=== PATIENT | female | born 1980 | race Caucasian/White ===

== ENCOUNTER 2016-07-25 17:04 | Inpatient (IN) | payer MEDICARE, OTHER ==
--- NOTE | ~2016-07-25 | DS ---
Discharge Summary [id number] [place]. [address] NAME: KATHY CASTILLO : 84 STATUS : DIS IN PAT#: [id number] AGE: 36 ADM/REG DATE : 07/25/16 MR#: [id number] REPORT SERV DATE: 07/31/16 DICTATED BY: DATE: REPORT STATUS : Draft TRANSCRIBED BY: MODL DATE: 07/30/16 ADMISSION DATE: 07/25/2016 DISCHARGE DATE: 07/30/2016 DISCHARGE DIAGNOSES: 1. Urinary tract infection. 2. Sepsis/systemic inflammatory response syndrome. 3. Obstructive uropathy. 4. Acute renal failure. 5. Type 2 diabetes, new diagnosis. 6. Chronic myelogenous leukemia. 7. Chronic anemia. 8. Urinary discomfort. CONSULTATIONS: 1. Dr. Trace Rojo, Nephrology. 2. Dr. Bethel Farnsworth, Urology. PERTINENT TESTS AND PROCEDURES: 1. Renal ultrasound 07/26/2016, impression, left-sided hydronephrotic changes not seen on CT scan from 10/2014. Question distal obstruction. Kidneys otherwise appear intact. Cortex normal echogenicity and thickness. Aorta, vena cava, and urinary bladder normal. 2. Cystoscopy, bilateral double-J stent placements, and Anderson catheter placement, 07/28/2016. 3. Anderson catheter removal, 07/30/2016 early a.m. POINT OF ENTRY: Transfer from [facility] Emergency Department. CHIEF COMPLAINT UPON ADMISSION: Acute renal failure. HOSPITAL COURSE: Please refer to history and physical dated 07/25/[address] Norberto Sousa for complete details pertaining to the patient's initial presentation upon admission and health history. Please also refer to consultations dated 07/27/2016 and 07/28/[address] Trace Rojo, Nephrology, and Dr. Bethel Farnsworth Urology. Briefly, the patient is a 36-year-old female, who presented to [facility] Emergency Department with chief complaint of back pain. Initial diagnostic evaluation included CT scan of abdomen and pelvis, which indicated bilateral upper renal tract dilatation secondary to small bilateral UVJ calculi. The patient also presented with acute renal failure. Creatinine reported to be 4.8. There was also concern for urinary tract infection. Urinalysis and culture were obtained at [facility] and the patient received first dose of Rocephin prior to transfer. 1. Urinary tract infection. The patient remained on Rocephin while awaiting urine culture Discharge Summary [address] [address] NAME: KATHY CASTILLO : 84 STATUS : DIS IN PAT#: [id number] AGE: 36 ADM/REG DATE : 07/25/16 MR#: [id number] REPORT SERV DATE: 07/31/16 DICTATED BY: DATE: REPORT STATUS : Draft TRANSCRIBED BY: MODL DATE: 07/30/16 from [facility] Emergency Department. Culture was finally obtained by fax two days ago and reported greater than 100,000 colonies of E. coli sensitive to Rocephin. The patient completed six days of Rocephin during hospital admission and will transition home on Ceftin 500 mg tablet p.o. twice daily x4 days to complete a total 10-day therapy. The patient was treated as complicated UTI secondary to sepsis/SIRS upon arrival. Unable to monitor the patient's white blood cell count secondary to count extremely elevated due to CML. Procalcitonin level was trended as an antibiotic guide. Procalcitonin was 14.28 upon admission and 1.20 on day of discharge. The patient has remained afebrile since 07/27/2016. 2. Sepsis/SIRS. Upon admission, the patient's procalcitonin was elevated at 14.2 and temperature maximum was 102.7 degrees Fahrenheit. This was urosepsis and the patient responded well to antibiotic therapy. Procalcitonin has trended downward and is 1.20 today. Blood cultures were obtained and preliminary results are negative growth. 3. Acute renal failure. This was multifactorial to include obstructive uropathy and hypovolemia. The patient's creatinine was 4.87 upon admission. Nephrology was consulted and followed along. The patient responded well to placement of bilateral double-J stents and since that time, creatinine has continued to trend downward daily and is 1.23 on the day of discharge. The patient will follow up outpatient with Nephrology in six to eight weeks. 4. Obstructive uropathy. Urology was consulted and the patient underwent cystoscopy with placement of bilateral double-J stents and Anderson catheter. The patient responded well to treatment and creatinine normalized. Anderson catheter was removed today and the patient has voided approximately 1250 mL of urine since that time. The patient did suffer from hyperuricemia during this admission, which was related to obstructive uropathy. The patient was also monitored closely for signs and symptoms of tumor lysis syndrome in the setting of CML. Uric acid was reported to be 14.9 upon admission, but normalized quickly after placement of bilateral double-J stents. Uric acid was reported to be 6.3 on 07/29/2016. 5. CML. The patient is under the care of Dr. Bowen at [facility]. The patient is noncompliant with treatment and prior to this admission, the patient reported not taking her Sprycel daily as prescribed by Dr. Bowen for over five months. Dr. Bowen was consulted during this admission and the patient has resumed medication per his instructions. The patient's white blood count is 115,000 on the day of discharge. The patient will follow up with Dr. Bowen in the near future. 6. Chronic anemia. The patient's hemoglobin and hematocrit have remained stable, status post transfusion of packed red blood cells on 07/27/2016. 7. Urinary discomfort. This is likely secondary to recent UTI and double-J stent placement. The patient was provided home prescription for Pyridium x2 days. 8. Type 2 diabetes. This is a new diagnosis during this admission. The patient's A1c was reported to be 6.7. Diabetic consult was requested and the patient received verbal education and handouts pertaining to diabetes, monitoring for hypo and hyperglycemia, sick day management. The patient was provided with glucometer and prescription for lancets and test strips. There was no indication for initiation of insulin at this time. The patient was counseled on lifestyle modifications. Blood glucose is stable between 130 and 158. The patient will start on metformin 500 mg p.o. daily with supper and follow up as a new patient at [facility] in four weeks for further evaluation and management. Discharge Summary [address] [address] NAME: KATHY CASTILLO : 84 STATUS : DIS IN PAT#: [id number] AGE: 36 ADM/REG DATE : 07/25/16 MR#: [id number] REPORT SERV DATE: 07/31/16 DICTATED BY: DATE: REPORT STATUS : Draft TRANSCRIBED BY: MODL DATE: 07/30/16 DISCHARGE CONDITION: At the time of discharge, the patient is hemodynamically stable. DISCHARGE DIET: 2000-calorie ADA diet. DISCHARGE MEDICATIONS: 1. Reglan 5 mg tablet p.o. every six hours. 2. Zofran 8 mg tablet p.o. at bedtime. 3. Zofran 8 mg tablet every eight hours as needed. 4. MiraLAX 17 g p.o. daily, hold for diarrhea. 5. Compazine 10 mg tablet p.o. at bedtime. 6. Zanaflex 4 mg tablet take 4 to 8 mg p.o. three times daily as needed. 7. Albuterol inhalation solution used as needed for shortness for shortness of breath. 8. Sprycel 100 mg tablet p.o. daily. 9. Ibuprofen. The patient was advised to abstain from all NSAIDs secondary to recent renal failure. 10.Ceftin 500 mg tablet p.o. twice daily x4 days, complete total of 10-day therapy for UTI. 11.Metformin 500 mg p.o. daily with supper. 12.Pyridium 100 mg tablet p.o. q.12 hours x2 days for urinary discomfort. DISCHARGE INSTRUCTIONS: 1. Follow up with Dr. Bowen within one week. 2. Follow up with Dr. Rojo, Nephrology, in six to eight weeks. 3. Follow up with Dr. Farnsworth, Urology, Tuesday08/06/2016. 4. Follow up at [facility] for further evaluation and management of new diagnosis, type 2 diabetes. The patient was instructed to return to the emergency department for any acute onset of fever 100.4 degrees Fahrenheit or higher lasting more than one hour, change in urinary pattern to include acute onset of dysuria or inability to urinate. Intractable nausea, vomiting, diarrhea, or any other concerns that are deviations from her baseline status at the time of this discharge. PRIMARY ONCOLOGIST: Dr. Bowen, [facility]. PRIMARY CARE PHYSICIAN: The patient has no primary care physician. She was referred to [facility] for appointment in August. KEAGAN/ONEYDA YOSHI Khalil#: [id number] / [id number] [address] [facility] [address] NAME: KATHY CASTILLO : 82 STATUS : DIS IN PAT#: [id number] AGE: 36 ADM/REG DATE : 07/25/16 MR#: [id number] REPORT SERV DATE: 07/31/16 DICTATED BY: DATE: REPORT STATUS : Draft TRANSCRIBED BY: MODL DATE: 07/30/16 CC: MD Jacek Chu II, M.D.
--- NOTE | ~2016-07-25 | HP ---
History And Physical [address] [facility] [place]. [address] NAME: KATHY CASTILLO : 84 STATUS : ADM IN PAT#: [id number] AGE: 36 ADM/REG DATE : 07/25/16 MR#: [id number] REPORT SERV DATE: 07/25/16 DICTATED BY: TERRENCE SOUSA DATE: 07/25/16 REPORT STATUS : Draft TRANSCRIBED BY: MODJenelle DATE: 07/25/16 DATE OF ADMISSION: 07/25/2016 CHIEF COMPLAINT: Transferred from [facility] ER. HISTORY OF PRESENT ILLNESS: This is a 36-year-old female with known history of CML, saw Dr. Bowen's last week. She states that for the past couple of weeks she has had issues with intermittent fevers, but consistent back pain on the right, worse than left. She states that she has had no dysuria and no issues with urination. However, she has had nausea and vomiting. The pain is has been largely consistent although getting progressively worse, currently 10/10. She denies anything making it better at home, although she has taken some ibuprofen. She presented to the ER earlier in the week as well. She says she has had fevers up to 104. Overnight, it was up to 100.8 in the ER; at the [facility], it was 99.8. She denies diarrhea. She has had about two normal bowel movements a day. Denies any bleeding. REVIEW OF SYSTEMS: A full review of systems was obtained, it is negative with the exception of above HPI. PAST MEDICAL HISTORY: The patient denies any medical history other than asthma and CML. FAMILY HISTORY: The patient says she had an uncle who of cancer, she is not sure of what kind. SOCIAL HISTORY: Denies smoking or drinking. Lives with her 17-year-old son and father who is ill. HOME MEDICATIONS: List is pending at this time. Per notes from the ER, she takes morphine, Ila 100 mg p.o. b.i.d., oxycodone 30 mg p.o. q.6 hours p.r.n., Ambien at bedtime p.r.n., Reglan 5 mg p.o. q.i.d., gabapentin 300 mg p.o. t.i.d., Zanaflex 8 mg p.o. t.i.d., phentermine 37.5 p.o. daily, and Zofran 8 mg p.o. b.i.d. As well as Sprycel for her CML which she has not received yet. PHYSICAL EXAMINATION: VITAL SIGNS: Temperature 99.8, blood pressure 110/60, pulse 93, respiratory rate 16, saturating 96% to 99% in the ER, they are 93% here. GENERAL: This is a female who is sitting in the bed, in no acute distress. She appears well developed and well nourished. HEENT: Extraocular muscles are intact. Sclerae anicteric. Mucous membranes are moist without any evidence of thrush. She has multiple facial piercings and tattoos. LUNGS: Clear to auscultation bilaterally without any wheezes, rales, or rhonchi. She has symmetric expansion. Normal effort. CARDIAC: Regular rate and rhythm with no appreciable murmur. ABDOMEN: Soft, nontender, nondistended. She does have right CVA tenderness. LOWER EXTREMITIES: Warm and well perfused with no edema. No rash. History And Physical [address] [address] NAME: KATHY CASTILLO : 84 STATUS : ADM IN [facility]#: [id number] AGE: 36 ADM/REG DATE : 07/25/16 MR#: [id number] REPORT SERV DATE: 07/25/16 DICTATED BY: TERRENCE SOUSA DATE: 07/25/16 REPORT STATUS : Draft TRANSCRIBED BY: ONEYDA DATE: 07/25/16 SKIN: Warm, dry, and intact with multiple tattoos and piercings. NEURO: Cranial nerves II through XII are grossly intact. Face is symmetric. Tongue is midline. LABORATORY DATA: From [facility] Emergency Room. Serum sodium 136, potassium 3.6, chloride 95, CO2 of 23, BUN 37, creatinine 4.8, uric acid 20.9, calcium 8.7. Total bilirubin 0.6, AST 24, ALT 20, alkaline phosphatase 128, total protein 8.1, albumin 4.5, globulin 3.6. White blood cell count 390, hemoglobin 9.2, platelet count of 670. Percent blast cells and periphery at 10. STUDIES: CT scan of the abdomen and pelvis without contrast, impression: 1. Bilateral upper renal tract dilatation which appears to be secondary to small bilateral UVJ calculi estimated to measure on the order of 0.3 to 0.4 cm. There may be additional small distal ureteric calculi as well. 2. Marked splenomegaly with mild improvement since prior. 3. Other findings as described. Chest x-ray: 1. Bronchial wall thickening. 2. Crowding due to shallow inspiration. 3. No firm evidence of pneumonia. ASSESSMENT AND PLAN: This is a 36-year-old female with history of compliance issues with known chronic myeloid leukemia, presenting with back pain, possible kidney stones in addition to fever. 1. Chronic myeloid leukemia with elevated uric acid of 20. The patient will be admitted to the hospital. Oncology will be consulted. This has been reviewed with Dr. Zeng. In the interim, we will give a dose of rasburicase and Hydrea mg p.o. x1. We will also check LDH and repeat blood work in the morning. Dr. Bowen's to see tomorrow. The patient should get her p.o. medication ordered from a mail order in the next couple days. We will also have pathologist her peripheral smear. 2. Acute renal failure. Likely this is multifactorial, could be related to her hydronephrosis versus uncontrolled chronic myeloid leukemia and possible urinary tract infection. The patient will be given IV fluids with IV bicarb in addition to ordering a urine ultrasound. We will continue IV fluids. She got approximately 3 L prior to transfer here. We will check urine lytes in addition and have a low threshold to consult Nephrology if needed. Repeat blood work in the morning, to monitor for any improvement. We will renally dose adjust medications as appropriate and avoid nephrotoxins. 3. Fevers with reportedly abnormal urinalysis at outside facility. We will continue ceftriaxone and follow up culture results from [facility]. 4. History of asthma. No acute issues here. We will have p.r.n. medications available as needed. Deep vein thrombosis prophylaxis will be with heparin. 5. Back pain. We will provide pain control and again follow up on renal ultrasound in the morning to determine if Urology consultation is needed for ongoing issues. 6. Chronic pain. Continue home medications with hold parameters for any sedations. 7. Hyperglycemia. We will check hemoglobin A1c. Serum glucose was 180 on BMP done in the History And Physical [address] [address] NAME: KATHY CASTILLO : 84 STATUS : ADM IN PAT#: [id number] AGE: 36 ADM/REG DATE : 07/25/16 MR#: [id number] REPORT SERV DATE: 07/25/16 DICTATED BY: TERRENCE SOUSA DATE: 07/25/16 REPORT STATUS : Draft TRANSCRIBED BY: ONEYDA DATE: 07/25/16 ER. CODE STATUS: Full. DNK/ONEYDA Terrence Sousa MD / [id number] CC: Terrence Sousa MD
--- NOTE | ~2016-07-25 | OP ---
Record Of Operation [facility] [address] [facility] [place] [place] [address] NAME: KATHY CASTILLO : 84 STATUS : ADM IN PAT#: [id number] AGE: 36 ADM/REG DATE : 07/25/16 MR#: [id number] REPORT SERV DATE: 07/28/16 DICTATED BY: Lisa DESAI DATE: 07/28/16 REPORT STATUS : Draft TRANSCRIBED BY: MODL DATE: 07/28/16 DATE OF PROCEDURE: 07/28/2016 PREOPERATIVE DIAGNOSIS: Bilateral ureteral obstruction due to distal ureteral stones with acute renal failure. POSTOPERATIVE DIAGNOSIS: Bilateral ureteral obstruction due to distal ureteral stones with acute renal failure. PROCEDURE: Cystoscopy, left retrograde pyelography, stone manipulation, left double-J stent placement, right retrograde pyelogram, stone manipulation, right double-J stent placement, examination under anesthesia, Anderson catheter placement. SURGEON: Lisa Desai M.D. ANESTHESIA: General. COMPLICATIONS: None. DRAINS: 1. Left 7-[place] x 22 cm Contour double-J stent. 2. Right 7-[place] x 24 cm Contour double-J stent. 3. 20-[place] two-way Anderson catheter. BRIEF HISTORY: Ms. Aram Quintana is a 36-year-old white female with CML, admitted with possible UTI and acute renal failure and bilateral hydronephrosis with this ureteral obstruction due to stone. I presume that these are uric acid stones, as her uric acid level was high. I saw her yesterday and plan to proceed with stent placement today and delayed ureteroscopy. There were no unanswered questions. All risks and benefits were discussed as per consultation note. DESCRIPTION OF PROCEDURE: Under excellent general anesthesia, the patient was prepped and draped in standard lithotomy position. Bimanual exam revealed no pelvic masses with a mobile cervix and normal external genitalia. Cystoscopy was performed with a 30-degree lens, revealed a normal appearing bladder. In general, there were small calcifications, crystalline in appearance in her bladder. Both intramural tunnels and ureteral orifices appeared inflamed and enlarged. I inserted an 8-[place] cone-tipped catheter in the left orifice. I was able to obtain retrograde pyelogram which showed distal filling defect due to stone and ureteral pyelocaliectasis. I inserted an angled glidewire through a 5-[place] open-ended catheter up to the level of the kidney. There was tortuosity proximally which required some manipulation of the ureteral catheter and wire, but I was able to straighten the ureter and then placed a 7-[place] x 22 cm Contour double-J stent. It looked first like it might be a little short, but it seem to find a reasonable position and then we will consider maybe a 24 cm stent in the future. Urine from that side was crystal clear and I saw no need to obtain a culture. Similarly, I obtained retrograde on the right side. Again the orifice and intramural tunnel area were inflamed and edematous. I was able to obtain a Record Of Operation [address] [place]. [address] NAME: KATHY CASTILLO : 84 STATUS : ADM IN PAT#: [id number] AGE: 36 ADM/REG DATE : 07/25/16 MR#: [id number] REPORT SERV DATE: 07/28/16 DICTATED BY: Lisa DESAI DATE: 07/28/16 REPORT STATUS : Draft TRANSCRIBED BY: ONEYDA DATE: 07/28/16 pyelogram which look much like the left side showing filling defect and obstruction. I was able to manipulate a Glidewire through a 5-[place] open-ended catheter and manipulated up to the level of the renal pelvis. Again the urine appeared clear and uninfected, so I did not send the specimen. I left the dilated collecting system opacified and placed a 7-[place] x 24 cm Contour double-J stent which coiled nicely in the renal pelvis and bladder. I decided for urine output monitoring to place a 20-[place] Anderson catheter and the case was terminated. I was unable initially to contact the family, but my plan would be once her renal failure resolves to perform bilateral ureteroscopy and remove any large volume stone and then in conjunction with renal, plan for urinary alkalinization with or without allopurinol assuming that these are uric acid stones. ANABELL/ONEYDA Lisa Desai M.D. / [id number] CC: MD Jacek Chu II, M.D. Trace Rojo M.D. Jesus Alberto Bowen III, M.D.
--- NOTE | ~2016-07-25 | CN ---
Consultation Report [facility] [address] [place]. [address] NAME: KATHY CASTILLO : 84 STATUS : ADM IN PAT#: [id number] AGE: 36 ADM/REG DATE : 07/25/16 MR#: [id number] REPORT SERV DATE: 07/27/16 DICTATED BY: TRACE ROJO DATE: 07/27/16 REPORT STATUS : Draft TRANSCRIBED BY: ONEYDA DATE: 07/27/16 NEPHROLOGY CONSULTATION DATE OF CONSULTATION: CHIEF COMPLAINT: Acute kidney insufficiency. HISTORY OF PRESENT ILLNESS: The patient is a 36-year-old noncompliant white female with significant past medical history of CML, presented to [facility] with complaints of bilateral flank pain. As part of initial workup, she had an abdominal pelvic CT scan that revealed bilateral upper renal tract dilatation secondary to suspected small bilateral UVJ calculi, estimated to be in the order of 0.3 mm to 0.4 mm. The patient was transferred to [facility] for further evaluation and management by Dr. Bowen. The patient's creatinine is 4.87 on arrival. She has received IV fluids and her creatinine today is 3.94. Renal ultrasound shows left-sided hydronephrosis. CT scan as noted above at [facility]. The patient was placed on Rocephin for possible urinary tract infection in the setting of her fevers. She was noted to have some nausea, vomiting, and poor oral intake. Her white blood cell count on arrival was 238. She received a dose of hydroxyurea. She was also noted to have a uric acid of 20. She received rasburicase. The patient is not on any chronic daily nephrotoxins. PAST MEDICAL HISTORY: CML, followed by Dr. Bowen . SOCIAL HISTORY: Son and father alive. FAMILY MEDICAL HISTORY: No known kidney disease. ALLERGIES: INCLUDE TRAMADOL, PENICILLINS, CODEINE, ACETAMINOPHEN, CEPHALEXIN. CURRENT MEDICATIONS: Rocephin, Reglan, NovoLog, Ambien, Zanaflex, IV Dilaudid, hydroxyurea. REVIEW OF SYSTEMS: Complete review of systems negative, otherwise stated in HPI. PHYSICAL EXAMINATION: VITAL SIGNS: Temperature is 99.5, pulse is 79, blood pressure is 110/60. GENERAL: She is a thin, white female, in no apparent distress. NEUROLOGIC: She is alert and oriented x3. Gross motor intact. SKIN: No petechiae or purpura. Multiple tattoos. HEENT: Normocephalic. NECK: No JVP. Trachea midline. No lymphadenopathy. CARDIOVASCULAR: Regular rate and rhythm. No gallops, rubs, or murmurs. RESPIRATORY: Clear to auscultation bilaterally. ABDOMEN: Soft, nontender. No bowel sounds. Consultation Report [place] [address] [place]. [address] NAME: KATHY CASTILLO : 84 STATUS : ADM IN PAT#: [id number] AGE: 36 ADM/REG DATE : 07/25/16 MR#: [id number] REPORT SERV DATE: 07/27/16 DICTATED BY: TRACE ROJO DATE: 07/27/16 REPORT STATUS : Draft TRANSCRIBED BY: MODL DATE: 07/27/16 EXTREMITIES: No peripheral edema. VASCULAR: +2 radial and carotid pulses bilaterally. PSYCH: Appropriate mood and affect. LABORATORY STUDIES: Sodium is 135, potassium is 3.9, chloride is 100, CO2 is 22, BUN is 48, creatinine is 3.94. Uric acid is 14.9, calcium is 7.2, magnesium is 2.0, phosphorus is 5.1. LDH completed on 07/26/2016, was 710. White blood cell count is 105.9, hemoglobin is 6.1, platelets of 311. ASSESSMENT: 1. Fever secondary to possible urinary tract infection. 2. Nephrolithiasis with bilateral hydronephrosis, hydroureter by CT scan at [facility]. 3. Chronic myelogenous leukemia with leukocytosis in the setting of medical noncompliance. 4. Hyperuricemia. 5. Anemia. 6. Resolved hypotension. 7. Multifactorial nonoliguric acute kidney insufficiency, most likely secondary to obstructive uropathy, but other components include hypovolemia and hyperviscosity syndrome. 8. Hyperphosphatemia. PLAN: 1. Urology consult for obstructive uropathy. 2. Monitor for tumor lysis syndrome. 3. IV fluids, bicarb. 4. A.m. labs. 5. No acute indication for hemodialysis. LOUISE/EZEQUIELL Trace Rojo M.D. / [id number] CC: MD Jacek Chu II, M.D.
--- NOTE | ~2016-07-25 | CN ---
Consultation Report [facility] [address] [place]. [address] NAME: KATHY CASTILLO : 84 STATUS : ADM IN PAT#: [id number] AGE: 36 ADM/REG DATE : 07/25/16 MR#: [id number] REPORT SERV DATE: 07/27/16 DICTATED BY: TRACE ROJO DATE: 07/27/16 REPORT STATUS : Draft TRANSCRIBED BY: MODL DATE: 07/27/16 NEPHROLOGY CONSULTATION DATE OF CONSULTATION: 07/27/2016 CHIEF COMPLAINT: Acute kidney insufficiency. HISTORY OF PRESENT ILLNESS: The patient is a 36-year-old, medically noncompliant white female with significant past medical history of CML, presented to [facility] for bilateral flank pain. She was noted to be febrile at that time, and concerns for urinary tract infection, started on Rocephin. She had a CT scan of her abdomen and pelvis, without contrast, and showed bilateral upper renal tract dilatation. There appeared to be this dilatation secondary to small bilateral UVJ calculi, which measure on the order of 0.3 [address] scan[address] scan revealed marked splenomegaly. The patient was transferred to [facility] for further evaluation and management under the guidance of the Hospitalist Service along with her medical oncologist - Dr. Bowen. She was noted to be febrile on transfer. Temperature was noted to be 102.7 at max. She is on Rocephin. Her T- max in last 24 hours is 100.8. Urine and blood cultures are currently negative. LOUISE/ONEYDA Trace Rojo M.D. / [id number] CC: MD Jacek Chu II, M.D.
--- NOTE | ~2016-07-25 | CN ---
Consultation Report [facility] [address] [place]. [address] NAME: KATHY CASTILLO : 84 STATUS : ADM IN PAT#: [id number] AGE: 36 ADM/REG DATE : 07/25/16 MR#: [id number] REPORT SERV DATE: 07/28/16 DICTATED BY: Lisa DESAI DATE: 07/28/16 REPORT STATUS : Draft TRANSCRIBED BY: ONEYDA DATE: 07/28/16 CONSULTATION DATE OF CONSULTATION: 07/27/2016 CHIEF COMPLAINT: Bilateral hydronephrosis with acute renal failure. HISTORY OF PRESENT ILLNESS: Ms. Aram Quintana is a 36-year-old white female, admitted with CML, recent fever, and back pain right greater than left. Apparently, she was seen elsewhere and had a urinary tract infection. I do not have any culture results. She has had some subjective fever, apparently also documented up to 104, but she has been afebrile recently. She was admitted 07/25/2016. It was noted now that her creatinine is 4.8, her uric acid is 20.9, a CT scan shows bilateral hydronephrosis with bilateral distal ureteral calculi. Her urine analysis is inflammatory. Culture is pending. She denies any history of stones. PAST MEDICAL HISTORY: 1. CML. 2. Asthma. PAST SURGICAL HISTORY: Tubal with surgery in 2004. HOME MEDICATIONS: Albuterol, Sprycel, Advil, Zofran, oxycodone, Zanaflex, Compazine, Reglan, Zolpidem, gabapentin 300 mg t.i.d. and Zanaflex 8 mg t.i.d. ALLERGIES: TRAMADOL, CEPHALEXIN, PENICILLIN, CODEINE, AND ACETAMINOPHEN ALL CAUSE WHELPS. PLASTIC TAPE ALSO CAUSED WHELPS. FAMILY HISTORY: Negative for urologic disease. SOCIAL HISTORY: The patient denies use of alcohol or tobacco. REVIEW OF SYSTEMS: A full 12-point review of systems was negative except as noted above. PHYSICAL EXAMINATION: GENERAL: Reasonably comfortable appearing 36-year-old white female, afebrile with normal vital signs. She is currently eating dinner. T-max of 100, alert and oriented x3. VITAL SIGNS: Afebrile with normal vital signs. HEENT: Normocephalic and atraumatic. Multiple piercing's and facial tattoos. CHEST: No respiratory distress. HEART: Regular rate and rhythm. ABDOMEN: Nontender and nondistended. No CVA tenderness. Except some mild tenderness on the right. No suprapubic distention. Consultation Report [place] [id number] [facility] [place]. [address] NAME: KATHY CASTILLO : 84 STATUS : ADM IN PAT#: [id number] AGE: 36 ADM/REG DATE : 07/25/16 MR#: [id number] REPORT SERV DATE: 07/28/16 DICTATED BY: Lisa DESAI DATE: 07/28/16 REPORT STATUS : Draft TRANSCRIBED BY: MODL DATE: 07/28/16 EXTREMITIES: Peripheral exam reveals no significant edema. PERTINENT LABORATORY: Creatinine on 07/27/2016 of 3.94, down from 4.87, white count is of no help, due to her CML with 105,000. Urinalysis is inflammatory. Culture is pending. IMPRESSION: 1. Chronic myelogenous leukemia. 2. Acute renal failure. 3. Bilateral hydronephrosis, with likely distal ureteral calculi, probably uric acid. 4. Possible urinary tract infection. Culture pending. PLAN: This patient needs cysto, bilateral retrograde, bilateral stent placement, followed by delayed ureteroscopy. She is presently awake, alert, and hemodynamically stable, eating dinner, I do not see any need for emergent intervention. We will try to add her on in the morning which is about 12 hours from now. We will change our plan if necessary. I discussed this with her and planned to place stents bilaterally as a first step, and we will proceed as indicated at that time. The risks of bleeding, infection, anesthesia, injury to adjacent organs etc, inability to place stents were all discussed. There were no unanswered questions. ANABELL/ONEYDA Lisa Desai M.D. / [id number] CC: MD Jacek Chu II, M.D.
[~2016-07-25 17:04] MED LIST: ASA5GR PO; COMP10B PO; LORT7 PO; OXYCOD PO; PONATINIB PO; PR25 PO; REG PO; ROXICODONE30 MG PO; ZOFRAN8 PO; [UNRECOGNIZED DRUG - OTHER] PO; [UNRECOGNIZED DRUG - REMARK]
[2016-07-25] MEDS ORDERED: COMP10B PO (18:11)
[2016-07-25] MEDS ORDERED: SPRYCEL100 MG PO (18:13)
[2016-07-25] MEDS ORDERED: OXYCOD PO (18:14)
[2016-07-25] MEDS ORDERED: REG5 PO (18:15)
[2016-07-25] MEDS ORDERED: AMB10 PO (18:15)
[2016-07-25] MEDS ORDERED: ZOFRANODT8 PO (18:16)
[2016-07-25] MEDS ORDERED: ZANAFLEX 4 MG TA4 MG PO (18:16)
[2016-07-25] MEDS ORDERED: ADVIL PO (18:16)
[2016-07-25] MEDS ORDERED: ZOFRAN8 PO (18:16)
[2016-07-25] MEDS ORDERED: ALBUTEROL5 PO (18:17)
[2016-07-26 05:05] LABS: MEAN CORPUSCULAR HEMOGLOB 28.4 pg (26.0-34.0); MEAN CORPUSCULAR VOLUME 82.8 fL (80-100); MEAN PLATELET VOLUME 10.3 fL (9.2-13.0); PLATELET COUNT 499 10/3/uL (150-400); RBC DISTRIBUTION WIDTH 18.1 % (12.0-16.0)
[2016-07-26 05:09] LABS: HEMATOCRIT 22.2 % (36.0-48.0); HEMOGLOBIN 7.6 g/dL (12.0-16.0); MEAN CORPUS HGB CONC 34.2 g/dL (32.0-36.0); RED CELL COUNT 2.68 10/6/uL (4.0-5.6); WHITE BLOOD CELLS 237.7 10/3/uL (4.5-10.5)
[2016-07-26 05:29] LABS: CHLORIDE, SERUM 101 MMOL/L (96-112); GLUCOSE, SERUM 162 MG/DL (60-99); PHOSPHORUS, SERUM 6.8 MG/DL (2.5-4.5); SODIUM, SERUM 136 MMOL/L (135-148)
[2016-07-26 05:34] LABS: BUN (BLOOD UREA NITROGEN) 43 MG/DL (6-23); CALCIUM, SERUM 7.3 MG/DL (8.5-10.4); CO2 (CARBON DIOXIDE) 19 MMOL/L (24-34); CREATININE 4.87 MG/DL (0.55-1.02); GFR AFRICAN AMERICAN 13 ML/MIN (>=60); GFR NON AFRICAN AMERICAN 11 ML/MIN (>=60); POTASSIUM, SERUM 4.4 MMOL/L (3.5-5.3)
[2016-07-26 05:50] LABS: SGOT(AST) 18 U/L (5-40); SGPT(ALT) 8 U/L (5-65); TOTAL BILIRUBIN 0.2 MG/DL (0-1.2); TOTAL PROTEIN 6.8 G/DL (6.0-8.5)
[2016-07-26 05:54] LABS: A/G RATIO 0.7 (0.7-1.9); ALBUMIN 2.8 G/DL (3.5-5.0); ALKALINE PHOSPHATASE 97 U/L (45-117)
[2016-07-26 06:35] LABS: PROCALCITONIN 14.28 ng/mL (<0.5)
[2016-07-26 07:32] LABS: BAND NEUTROPHILS 42 %; BASOPHILS 2 %; BASOPHILS ABSOLUTE (CALC) 4.75 10/3/uL (0.0-0.16); EOSINOPHILS 8 %; EOSINOPHILS ABSOLUTE (CALC) 19.02 10/3/uL (0.0-0.53); IMMATURE GRANS ABSOLUTE (CALC) 40.41 10/3/uL (0.0-0.11); LYMPHOCYTES 1 %; LYMPHOCYTES ABSOLUTE (CALC) 2.38 10/3/uL (0.67-4.30); METAMYELOCYTES 8 %; MYELOCYTES 9 %; NEUTROPHILS ABSOLUTE (CALC) 171.14 10/3/uL (2.02-8.40); SEGMENTED NEUTROPHIL (0) 30 %; TOTAL NUCLEATED CELLS 100
[2016-07-26 07:33] LABS: PLATELET ESTIMATE SLT INC (ADEQUATE); POLYCHROMASIA 2+ (5-10/OIF) (0-1/OIF); TOXIC GRANULATION 1+
[2016-07-26 13:07] LABS: ASCORBIC ACID (UR NOT ORDER) NEG (NEG); BILIRUBIN, URINE NEGATIVE (NEG); KETONE, URINE NEGATIVE (NEG); LEUKOCYTE ESTERASE(NOT OR SMALL (NEG); WBC (NOT ORDERED) (RFLEX) 13 (0-5)
[2016-07-26 13:59] LABS: CREATININE, URINE 49.5 MG/DL
[2016-07-27 06:41] LABS: BUN (BLOOD UREA NITROGEN) 48 MG/DL (6-23); CALCIUM, SERUM 7.2 MG/DL (8.5-10.4); CHLORIDE, SERUM 100 MMOL/L (96-112); CO2 (CARBON DIOXIDE) 22 MMOL/L (24-34); CREATININE 3.94 MG/DL (0.55-1.02); GFR AFRICAN AMERICAN 16 ML/MIN (>=60); GFR NON AFRICAN AMERICAN 14 ML/MIN (>=60); GLUCOSE, SERUM 132 MG/DL (60-99); PHOSPHORUS, SERUM 5.1 MG/DL (2.5-4.5); POTASSIUM, SERUM 3.9 MMOL/L (3.5-5.3); SODIUM, SERUM 135 MMOL/L (135-148)
[2016-07-27 07:21] LABS: MEAN CORPUS HGB CONC 34.5 g/dL (32.0-36.0); MEAN CORPUSCULAR HEMOGLOB 27.5 pg (26.0-34.0); MEAN PLATELET VOLUME 10.2 fL (9.2-13.0); RBC DISTRIBUTION WIDTH 17.7 % (12.0-16.0); RED CELL COUNT 2.22 10/6/uL (4.0-5.6)
[2016-07-27 07:24] LABS: HEMOGLOBIN 6.1 g/dL (12.0-16.0); WHITE BLOOD CELLS 105.9 10/3/uL (4.5-10.5)
[2016-07-27 07:25] LABS: HEMATOCRIT 17.7 % (36.0-48.0); MEAN CORPUSCULAR VOLUME 79.7 fL (80-100)
[2016-07-27 07:26] LABS: PLATELET COUNT 311 10/3/uL (150-400)
[2016-07-27 07:29] LABS: MANUAL DIFF YES %
[2016-07-27 07:49] LABS: BAND NEUTROPHILS 31 %; EOSINOPHILS 2 %; EOSINOPHILS ABSOLUTE (CALC) 2.12 10/3/uL (0.0-0.53); IMMATURE GRANS ABSOLUTE (CALC) 8.47 10/3/uL (0.0-0.11); LYMPHOCYTES 2 %; LYMPHOCYTES ABSOLUTE (CALC) 2.12 10/3/uL (0.67-4.30); METAMYELOCYTES 5 %; MONOCYTES 1 %; MONOCYTES ABSOLUTE (CALC) 1.06 10/3/uL (0.21-1.20); MYELOCYTES 3 %; NEUTROPHILS ABSOLUTE (CALC) 92.13 10/3/uL (2.02-8.40); SEGMENTED NEUTROPHIL (0) 56 %; TOTAL NUCLEATED CELLS 100
[2016-07-27 07:50] LABS: ANISOCYTOSIS 1+ (5-10/OIF) (0-5/OIF); PLATELET ESTIMATE ADQ (ADEQUATE)
[2016-07-27 20:00] LABS: ASCORBIC ACID (UR NOT ORDER) NEG (NEG); BILIRUBIN, URINE NEGATIVE (NEG); KETONE, URINE NEGATIVE (NEG); LEUKOCYTE ESTERASE(NOT OR SMALL (NEG); WBC (NOT ORDERED) (RFLEX) 16 (0-5)
[2016-07-28 06:10] LABS: ALBUMIN 2.7 G/DL (3.5-5.0); BUN (BLOOD UREA NITROGEN) 35 MG/DL (6-23); CALCIUM, SERUM 7.5 MG/DL (8.5-10.4); CHLORIDE, SERUM 99 MMOL/L (96-112); CO2 (CARBON DIOXIDE) 25 MMOL/L (24-34); GFR AFRICAN AMERICAN 30 ML/MIN (>=60); GFR NON AFRICAN AMERICAN 25 ML/MIN (>=60); GLUCOSE, SERUM 107 MG/DL (60-99); SODIUM, SERUM 138 MMOL/L (135-148)
[2016-07-28 06:15] LABS: HEMOGLOBIN 8.4 g/dL (12.0-16.0); MANUAL DIFF YES %; MEAN CORPUS HGB CONC 33.6 g/dL (32.0-36.0); MEAN CORPUSCULAR HEMOGLOB 27.2 pg (26.0-34.0); MEAN CORPUSCULAR VOLUME 80.9 fL (80-100); MEAN PLATELET VOLUME 10.7 fL (9.2-13.0); NUCLEATED RED BLOOD CELLS 0.1 /100WBC (0-0); PLATELET COUNT 319 10/3/uL (150-400); RBC DISTRIBUTION WIDTH 17.2 % (12.0-16.0); RED CELL COUNT 3.09 10/6/uL (4.0-5.6); WHITE BLOOD CELLS 108.4 10/3/uL (4.5-10.5)
[2016-07-28 06:29] LABS: BAND NEUTROPHILS 29 %; EOSINOPHILS 1 %; EOSINOPHILS ABSOLUTE (CALC) 1.08 10/3/uL (0.0-0.53); IMMATURE GRANS ABSOLUTE (CALC) 5.42 10/3/uL (0.0-0.11); LYMPHOCYTES 4 %; LYMPHOCYTES ABSOLUTE (CALC) 4.34 10/3/uL (0.67-4.30); METAMYELOCYTES 1 %; MONOCYTES 1 %; MONOCYTES ABSOLUTE (CALC) 1.08 10/3/uL (0.21-1.20); MYELOCYTES 4 %; NEUTROPHILS ABSOLUTE (CALC) 96.48 10/3/uL (2.02-8.40); PLATELET ESTIMATE ADQ (ADEQUATE); RBC MORPHOLOGY ABN (NORMAL); SEGMENTED NEUTROPHIL (0) 60 %; TOTAL NUCLEATED CELLS 100
[2016-07-29 06:29] LABS: HEMATOCRIT 26.9 % (36.0-48.0); HEMOGLOBIN 8.7 g/dL (12.0-16.0); MEAN CORPUS HGB CONC 32.3 g/dL (32.0-36.0); MEAN CORPUSCULAR HEMOGLOB 26.9 pg (26.0-34.0); MEAN PLATELET VOLUME 10.9 fL (9.2-13.0); PLATELET COUNT 364 10/3/uL (150-400); RBC DISTRIBUTION WIDTH 17.5 % (12.0-16.0); RED CELL COUNT 3.24 10/6/uL (4.0-5.6)
[2016-07-29 06:42] LABS: WHITE BLOOD CELLS 113.5 10/3/uL (4.5-10.5)
[2016-07-29 06:51] LABS: ALBUMIN 2.3 G/DL (3.5-5.0); BUN (BLOOD UREA NITROGEN) 21 MG/DL (6-23); CALCIUM, SERUM 7.7 MG/DL (8.5-10.4); CHLORIDE, SERUM 100 MMOL/L (96-112); CO2 (CARBON DIOXIDE) 29 MMOL/L (24-34); CREATININE 1.43 MG/DL (0.55-1.02); GFR AFRICAN AMERICAN 55 ML/MIN (>=60); GFR NON AFRICAN AMERICAN 48 ML/MIN (>=60); GLUCOSE, SERUM 120 MG/DL (60-99); POTASSIUM, SERUM 3.8 MMOL/L (3.5-5.3); SODIUM, SERUM 137 MMOL/L (135-148)
[2016-07-29 07:18] LABS: ANISOCYTOSIS 1+ (5-10/OIF) (0-5/OIF); BAND NEUTROPHILS 7 %; BASOPHILS 3 %; BASOPHILS ABSOLUTE (CALC) 5.68 10/3/uL (0.0-0.16); EOSINOPHILS 2 %; EOSINOPHILS ABSOLUTE (CALC) 2.27 10/3/uL (0.0-0.53); GIANT PLATELET OCC; IMMATURE GRANS ABSOLUTE (CALC) 4.54 10/3/uL (0.0-0.11); LYMPHOCYTES 10 %; LYMPHOCYTES ABSOLUTE (CALC) 11.35 10/3/uL (0.67-4.30); METAMYELOCYTES 4 %; MONOCYTES 2 %; MONOCYTES ABSOLUTE (CALC) 2.27 10/3/uL (0.21-1.20); PLATELET ESTIMATE ADQ (ADEQUATE); SEGMENTED NEUTROPHIL (0) 72 %; TOTAL NUCLEATED CELLS 100
[2016-07-30 05:07] LABS: ALBUMIN 2.4 G/DL (3.5-5.0); CALCIUM, SERUM 7.4 MG/DL (8.5-10.4); CHLORIDE, SERUM 100 MMOL/L (96-112); CO2 (CARBON DIOXIDE) 29 MMOL/L (24-34); CREATININE 1.23 MG/DL (0.55-1.02); GFR AFRICAN AMERICAN 66 ML/MIN (>=60); GFR NON AFRICAN AMERICAN 57 ML/MIN (>=60); GLUCOSE, SERUM 130 MG/DL (60-99); PHOSPHORUS, SERUM 2.9 MG/DL (2.5-4.5); POTASSIUM, SERUM 4.2 MMOL/L (3.5-5.3); SODIUM, SERUM 140 MMOL/L (135-148)
[2016-07-30 05:10] LABS: BUN (BLOOD UREA NITROGEN) 16 MG/DL (6-23)
[2016-07-30 05:13] LABS: HEMOGLOBIN 9.7 g/dL (12.0-16.0); MEAN CORPUSCULAR HEMOGLOB 27.2 pg (26.0-34.0); MEAN CORPUSCULAR VOLUME 85.1 fL (80-100); MEAN PLATELET VOLUME 11.1 fL (9.2-13.0); NUCLEATED RED BLOOD CELLS 0.2 /100WBC (0-0); RBC DISTRIBUTION WIDTH 17.6 % (12.0-16.0); RED CELL COUNT 3.56 10/6/uL (4.0-5.6)
[2016-07-30 05:15] LABS: HEMATOCRIT 30.3 % (36.0-48.0); WHITE BLOOD CELLS 115.8 10/3/uL (4.5-10.5)
[2016-07-30 05:16] LABS: MANUAL DIFF YES %; PLATELET COUNT 555 10/3/uL (150-400)
[2016-07-30 07:32] LABS: BAND NEUTROPHILS 29 %; EOSINOPHILS 3 %; EOSINOPHILS ABSOLUTE (CALC) 3.47 10/3/uL (0.0-0.53); GIANT PLATELET FEW; IMMATURE GRANS ABSOLUTE (CALC) 9.26 10/3/uL (0.0-0.11); LYMPHOCYTES 2 %; LYMPHOCYTES ABSOLUTE (CALC) 2.32 10/3/uL (0.67-4.30); METAMYELOCYTES 4 %; MONOCYTES 4 %; MONOCYTES ABSOLUTE (CALC) 4.63 10/3/uL (0.21-1.20); MYELOCYTES 4 %; NEUTROPHILS ABSOLUTE (CALC) 96.11 10/3/uL (2.02-8.40); PLATELET ESTIMATE INC (ADEQUATE); SEGMENTED NEUTROPHIL (0) 54 %; TOTAL NUCLEATED CELLS 100
[2016-07-30] MEDS ORDERED: PYR100B PO (12:25)
[2016-07-30] MEDS ORDERED: CEFT5 PO (12:25)
[2016-07-30] MEDS ORDERED: GLUCPH PO (12:26)
[2016-07-30] MEDS ORDERED: MIRALAX POWDER1 PKT PO (12:32)
[2016-10-13] MEDS ORDERED: NEUR400 PO (03:30)
[2016-10-13] MEDS ORDERED: ZANAFLEX 4 MG TA4 MG PO (03:31)
[2016-10-13] MEDS ORDERED: GLUCPH PO (03:31)
[2016-10-13] MEDS ORDERED: SEROQUEL400 MG PO (03:32)
[2016-10-13] MEDS ORDERED: REG5 PO (03:32)
[2016-10-13] MEDS ORDERED: BUSPAR10 PO (03:33)
[2016-10-13] MEDS ORDERED: ZOL100 PO (03:34)
[2016-10-13] MEDS ORDERED: AMB10 PO (03:34)
[2016-10-13] MEDS ORDERED: COMP10B PO (03:35)
[2016-10-13] MEDS ORDERED: SPRYCEL100 MG PO (03:35)
[2016-10-13] MEDS ORDERED: ZOFRANODT8 PO/SL (03:36)
[2016-10-13] MEDS ORDERED: VENTOLIN HFA INH (03:37)
[2016-10-13] MEDS ORDERED: TYLENOL PM PO (03:38)
[2016-10-13] MEDS ORDERED: CORT-DOME 1% CR15 GM TOP (03:39)
[2017-01-01] MEDS ORDERED: COMP10B PO (17:33)
[2017-01-01] MEDS ORDERED: PRAZOSIN HCL1 MG PO (17:33)
[2017-01-01] MEDS ORDERED: REM15 PO (17:34)
[2017-01-01] MEDS ORDERED: TRIAMCINOLONE C80 GM TOP (17:35)
[2017-01-01] MEDS ORDERED: MELATONIN5 M1 PO (17:35)
[2017-01-01] MEDS ORDERED: ZYPREXA10 MG PO (17:37)
[2017-01-01] MEDS ORDERED: TYLENOL PM PO (17:38)
[2017-01-01] MEDS ORDERED: SPRYCEL100 MG PO (17:39)
[2017-01-01] MEDS ORDERED: ZOFRAN8 PO (17:40)
[2017-01-01] MEDS ORDERED: AT25 PO (17:40)
[2017-01-01] MEDS ORDERED: GLUCPH PO (17:41)
[2017-01-01] MEDS ORDERED: ZANTAC300 MG PO (17:41)
[2017-01-01] MEDS ORDERED: NEUR400 PO (17:41)
[2017-01-01] MEDS ORDERED: BUSPAR15 M1 PO (17:42)
[2017-01-01] MEDS ORDERED: REG5 PO (17:43)
[2017-01-01] MEDS ORDERED: ZANAFLEX 4 MG TA4 MG PO (17:43)
[2017-01-01] MEDS ORDERED: SEROQUEL400 MG PO (17:44)
[2017-01-01] MEDS ORDERED: DOX10 PO (17:44)
[2017-01-01] MEDS ORDERED: SIMPLY SLEEP25 MG PO (17:45)
[2017-01-01] MEDS ORDERED: AMB10 PO (17:46)
[2017-01-01] MEDS ORDERED: ZOL100 PO (17:46)
[2017-01-01] MEDS ORDERED: PHENTERMINE37.5 M1 PO (17:47)
[2017-01-01] MEDS ORDERED: MSCONTIN PO (17:48)
[2017-01-01] MEDS ORDERED: PROAIR HFA INH (17:52)
[2017-01-01] MEDS ORDERED: ADVAIR250 INH (17:53)
[2017-01-01] MEDS ORDERED: FLONASE NAS (17:55)
[2017-01-01] MEDS ORDERED: KEPPRA500 PO (18:04)
[2017-01-01] MEDS ORDERED: GENPRIL200 MG PO (18:04)
[2017-01-01] MEDS ORDERED: ACTOS30 PO (18:06)
[2017-01-01] MEDS ORDERED: OXYCODONE (18:12)
== END 2016-07-30 15:30 | disposition home or self-care (01) | DRG 854 ==
LOC: 4EA 17:04
PROVIDERS: Internal Medicine; Internal Medicine Nephrology; Nurse Practitioner Family
PROC: 30233N1 Transfusion of Nonautologous Red Blood Cells into Peripheral Vein, Percutaneous Approach (ICD-10-PCS; 2016-07-25)
PROC: 0T7B8DZ Dilation of Bladder with Intraluminal Device, Via Natural or Artificial Opening Endoscopic (ICD-10-PCS; 2016-07-28)
PROC: 0T7B8DZ Dilation of Bladder with Intraluminal Device, Via Natural or Artificial Opening Endoscopic (ICD-10-PCS; principal; 2016-07-28 06:45)
DX: A41.9 Sepsis, unspecified organism (principal); N17.9 Acute kidney failure, unspecified; E87.2 Acidosis; C92.10 Chronic myeloid leukemia, BCR/ABL-positive, not having achieved remission; N13.30 Unspecified hydronephrosis; E83.39 Other disorders of phosphorus metabolism; N39.0 Urinary tract infection, site not specified; E11.9 Type 2 diabetes mellitus without complications; E79.0 Hyperuricemia without signs of inflammatory arthritis and tophaceous disease; D64.9 Anemia, unspecified; B96.20 Unspecified Escherichia coli [E. coli] as the cause of diseases classified elsewhere
CPT/HCPCS: 36415; 74420; 76775; 80048; 80053; 80069; 81001; 82570; 82962; 83036; 83605; 83615; 83735; 84100; 84145; 84300; 84550; 84703; 85007; 85025; 85027; 86850; 86900; 86901; 86920; 87040; 87086; 88184; 88185; A9270-GY; C1758; C1769; C1874; C2617; J1170; J2250; J2405; J2710; J2783; J3010; P9040; Q9967

== ENCOUNTER 2016-08-06 12:07 | Day surgery (SDC) | payer MEDICARE, OTHER ==
--- NOTE | ~2016-08-06 | OP ---
Record Of Operation [facility] [address] [place] [address] NAME: KATHY BENITEZ : 84 STATUS : [facility]#: [id number] AGE: 36 ADM/REG DATE : 08/06/16 MR#: [id number] REPORT SERV DATE: 08/06/16 DICTATED BY: Lisa DESAI DATE: 08/06/16 REPORT STATUS : Draft TRANSCRIBED BY: MODL DATE: 08/06/16 DATE OF PROCEDURE: 08/06/2016 PREOPERATIVE DIAGNOSIS: Bilateral indwelling double-J stents with bilateral distal stones. POSTOPERATIVE DIAGNOSIS: No evidence of residual stone. PROCEDURES: Cystoscopy, removal of right double-J stent, right retrograde pyelography, ureteroscopy, removal of left double-J stent, left retrograde pyelography, left ureteroscopy, placement of left double-J stent. SURGEON: Lisa Desai M.D. ANESTHESIA: General endotracheal. COMPLICATIONS: None. DRAINS: 7-Cameroonian x 22 cm Contour left double-J stent (on a string). BRIEF HISTORY: Ms Aram Benitez is a 36-year-old white female with CML and evidence of recent infection and was found to have renal failure, bilateral hydronephrosis, and distal ureteral stones on 07/27/2016. I placed stent for the morning and her creatinine normalized to about 1.4. She has had typical stent irritation. She is here for ureteroscopy and stone removal. She had a high uric acid and is presumed these are uric acid stones. We discussed the risks of bleeding, infection, anesthesia, need to place stents postoperatively. She desperately wanted to avoid further surgery if possible and I told her I would leave stents on a string if reasonable. DESCRIPTION OF PROCEDURE: Under excellent general anesthesia, the patient was prepped and draped in the standard lithotomy position. Cystoscopy was performed with a 30-degree lens, revealed stents emanating from each orifice. I removed the stent from her right ureteral orifice without difficulty. I inserted an angled glidewire through a 5-Cameroonian open-ended catheter and then a rigid ureteroscope was inserted alongside the wire. I saw two tiny stone fragments right at her orifice. I did not see any residual stone and I looked all the way up to her UPJ. I removed the scope and wire and her collecting system remain dilated, but most of her ureter drained easily. I then removed the stent from her left ureter with a flexible grasper. I inserted an angled wire through a 5-Cameroonian open-ended catheter and performed rigid ureteroscopy on the left side. Again, no stone was seen even with inspection all the way up to the proximal ureter. She has bilateral tortuosity of proximal ureters. I left that collecting system dilutely opacified and retrofitted the wire in the cystoscope. I then placed a 7-Cameroonian x 22 cm Contour double-J stent, which coiled nicely in the renal pelvis and bladder and left the string attached. I plan to discharge Ms Aram Benitez with the following instructions. Record Of Operation [place] [id number] [facility] [place] [address] NAME: KATHY BENITEZ : 84 STATUS : [facility] PAT#: [id number] AGE: 36 ADM/REG DATE : 08/06/16 MR#: [id number] REPORT SERV DATE: 08/06/16 DICTATED BY: Lisa DESAI DATE: 08/06/16 REPORT STATUS : Draft TRANSCRIBED BY: ONEYDA DATE: 08/06/16 DISCHARGE INSTRUCTIONS: 1. Home today. 2. Remove stent Tuesday morning, that is in three days. 3. Call for any problems. 4. Percocet 5/325 one to two p.o. q.4 hours p.r.n. pain with #20. 5. I would like to see her in a couple weeks. I do not think we will have stone analysis, although we will not have any stone analysis. We will discuss the rationale of alkalinize in her urine. Check a postvoid residual and make sure that her creatinine has remained stable. At this point in time, I have not been able to find her family. ANABELL/ONEYDA Lisa Desai M.D. / [id number] CC: Florinda Thomas III, M.D.
[~2016-08-06 12:07] MED LIST changes: +ADVIL PO; +ALBUTEROL5 PO; +AMB10 PO; +CEFT5 PO; +GLUCPH PO; +MIRALAX POWDER1 PKT PO; +PYR100B PO; +REG5 PO; +SPRYCEL100 MG PO; +ZANAFLEX 4 MG TA4 MG PO; +ZOFRANODT8 PO
[2016-10-13] MEDS ORDERED: NEUR400 PO (03:30)
[2016-10-13] MEDS ORDERED: ZANAFLEX 4 MG TA4 MG PO (03:31)
[2016-10-13] MEDS ORDERED: GLUCPH PO (03:31)
[2016-10-13] MEDS ORDERED: SEROQUEL400 MG PO (03:32)
[2016-10-13] MEDS ORDERED: REG5 PO (03:32)
[2016-10-13] MEDS ORDERED: BUSPAR10 PO (03:33)
[2016-10-13] MEDS ORDERED: AMB10 PO (03:34)
[2016-10-13] MEDS ORDERED: ZOL100 PO (03:34)
[2016-10-13] MEDS ORDERED: COMP10B PO (03:35)
[2016-10-13] MEDS ORDERED: SPRYCEL100 MG PO (03:35)
[2016-10-13] MEDS ORDERED: ZOFRANODT8 PO/SL (03:36)
[2016-10-13] MEDS ORDERED: VENTOLIN HFA INH (03:37)
[2016-10-13] MEDS ORDERED: TYLENOL PM PO (03:38)
[2016-10-13] MEDS ORDERED: CORT-DOME 1% CR15 GM TOP (03:39)
[2017-01-01] MEDS ORDERED: PRAZOSIN HCL1 MG PO (17:33)
[2017-01-01] MEDS ORDERED: COMP10B PO (17:33)
[2017-01-01] MEDS ORDERED: REM15 PO (17:34)
[2017-01-01] MEDS ORDERED: MELATONIN5 M1 PO (17:35)
[2017-01-01] MEDS ORDERED: TRIAMCINOLONE C80 GM TOP (17:35)
[2017-01-01] MEDS ORDERED: ZYPREXA10 MG PO (17:37)
[2017-01-01] MEDS ORDERED: TYLENOL PM PO (17:38)
[2017-01-01] MEDS ORDERED: SPRYCEL100 MG PO (17:39)
[2017-01-01] MEDS ORDERED: ZOFRAN8 PO (17:40)
[2017-01-01] MEDS ORDERED: AT25 PO (17:40)
[2017-01-01] MEDS ORDERED: NEUR400 PO (17:41)
[2017-01-01] MEDS ORDERED: GLUCPH PO (17:41)
[2017-01-01] MEDS ORDERED: ZANTAC300 MG PO (17:41)
[2017-01-01] MEDS ORDERED: BUSPAR15 M1 PO (17:42)
[2017-01-01] MEDS ORDERED: REG5 PO (17:43)
[2017-01-01] MEDS ORDERED: ZANAFLEX 4 MG TA4 MG PO (17:43)
[2017-01-01] MEDS ORDERED: DOX10 PO (17:44)
[2017-01-01] MEDS ORDERED: SEROQUEL400 MG PO (17:44)
[2017-01-01] MEDS ORDERED: SIMPLY SLEEP25 MG PO (17:45)
[2017-01-01] MEDS ORDERED: ZOL100 PO (17:46)
[2017-01-01] MEDS ORDERED: AMB10 PO (17:46)
[2017-01-01] MEDS ORDERED: PHENTERMINE37.5 M1 PO (17:47)
[2017-01-01] MEDS ORDERED: MSCONTIN PO (17:48)
[2017-01-01] MEDS ORDERED: PROAIR HFA INH (17:52)
[2017-01-01] MEDS ORDERED: ADVAIR250 INH (17:53)
[2017-01-01] MEDS ORDERED: FLONASE NAS (17:55)
[2017-01-01] MEDS ORDERED: GENPRIL200 MG PO (18:04)
[2017-01-01] MEDS ORDERED: KEPPRA500 PO (18:04)
[2017-01-01] MEDS ORDERED: ACTOS30 PO (18:06)
[2017-01-01] MEDS ORDERED: OXYCODONE (18:12)
== END 2016-08-06 18:58 | disposition home or self-care (01) ==
LOC: SDC 12:07
PROC: 0T778DZ Dilation of Left Ureter with Intraluminal Device, Via Natural or Artificial Opening Endoscopic (ICD-10-PCS; 2016-08-06)
PROC: 0T768DZ Dilation of Right Ureter with Intraluminal Device, Via Natural or Artificial Opening Endoscopic (ICD-10-PCS; 2016-08-06)
PROC: BT1DZZZ Fluoroscopy of Right Kidney, Ureter and Bladder (ICD-10-PCS; 2016-08-06)
PROC: 0TP98DZ Removal of Intraluminal Device from Ureter, Via Natural or Artificial Opening Endoscopic (ICD-10-PCS; principal; 2016-08-06 13:30)
DX: T83.85XA Stenosis due to genitourinary prosthetic devices, implants and grafts, initial encounter (principal); J45.909 Unspecified asthma, uncomplicated; N18.9 Chronic kidney disease, unspecified; E11.9 Type 2 diabetes mellitus without complications; G43.909 Migraine, unspecified, not intractable, without status migrainosus; M10.9 Gout, unspecified; F12.90 Cannabis use, unspecified, uncomplicated; C92.10 Chronic myeloid leukemia, BCR/ABL-positive, not having achieved remission; Z92.21 Personal history of antineoplastic chemotherapy; Z98.890 Other specified postprocedural states; Z92.3 Personal history of irradiation; Z88.0 Allergy status to penicillin; Z88.5 Allergy status to narcotic agent; Z88.6 Allergy status to analgesic agent; Z91.048 Other nonmedicinal substance allergy status
CPT/HCPCS: 74420; 82962; 84703; C1758; C1769; C2617; J1170; J2250; J2405; J2550; J2710; J3010; Q9967

== ENCOUNTER 2016-08-20 11:57 | Emergency (ER) | payer MEDICARE, OTHER ==
[2016-08-20 10:38] LABS: BUN (BLOOD UREA NITROGEN) 19 MG/DL (6-23); CHLORIDE, SERUM 105 MMOL/L (96-112); CO2 (CARBON DIOXIDE) 28 MMOL/L (24-34); CREATININE 1.15 MG/DL (0.55-1.02); GFR AFRICAN AMERICAN 72 ML/MIN (>=60); GFR NON AFRICAN AMERICAN 62 ML/MIN (>=60); POTASSIUM, SERUM 4.3 MMOL/L (3.5-5.3); SODIUM, SERUM 138 MMOL/L (135-148)
[2016-08-20 10:40] LABS: GLUCOSE, SERUM 101 MG/DL (60-99)
[2016-08-20 10:41] LABS: ASCORBIC ACID (UR NOT ORDER) NEG (NEG); BILIRUBIN, URINE NEGATIVE (NEG); ER URINALYSIS TAT 0 Hrs 18 Mins; KETONE, URINE NEGATIVE (NEG); LEUKOCYTE ESTERASE(NOT OR NEG (NEG); NITRITE (URINE) NEG (NEG); WBC (NOT ORDERED) (RFLEX) 2 (0-5)
[2016-08-20 10:46] LABS: HEMOGLOBIN 11.4 g/dL (12.0-16.0); MEAN CORPUS HGB CONC 31.4 g/dL (32.0-36.0); MEAN CORPUSCULAR HEMOGLOB 26.8 pg (26.0-34.0); MEAN CORPUSCULAR VOLUME 85.4 fL (80-100); MEAN PLATELET VOLUME 9.7 fL (9.2-13.0); RBC DISTRIBUTION WIDTH 19.6 % (12.0-16.0); RED CELL COUNT 4.25 10/6/uL (4.0-5.6)
[2016-08-20 10:47] LABS: ER CBC TAT 0 Hrs 25 Mins; HEMATOCRIT 36.3 % (36.0-48.0); PLATELET COUNT 883 10/3/uL (150-400); WHITE BLOOD CELLS 32.8 10/3/uL (4.5-10.5)
[2016-08-20 10:49] LABS: MANUAL DIFF YES %
[2016-08-20 11:03] LABS: BAND NEUTROPHILS 11 %; BASOPHILS 10 %; BASOPHILS ABSOLUTE (CALC) 3.28 10/3/uL (0.0-0.16); EOSINOPHILS 8 %; EOSINOPHILS ABSOLUTE (CALC) 2.62 10/3/uL (0.0-0.53); ER DIFF TAT 0 Hrs 41 Mins; IMMATURE GRANS ABSOLUTE (CALC) 1.97 10/3/uL (0.0-0.11); LYMPHOCYTES 9 %; LYMPHOCYTES ABSOLUTE (CALC) 2.95 10/3/uL (0.67-4.30); METAMYELOCYTES 3 %; MONOCYTES 1 %; MYELOCYTES 3 %; NEUTROPHILS ABSOLUTE (CALC) 21.98 10/3/uL (2.02-8.40); SEGMENTED NEUTROPHIL (0) 55 %; TOTAL NUCLEATED CELLS 100
[2016-08-20 11:04] LABS: ANISOCYTOSIS 1+ (5-10/OIF) (0-5/OIF)
[2016-10-13] MEDS ORDERED: NEUR400 PO (03:30)
[2016-10-13] MEDS ORDERED: ZANAFLEX 4 MG TA4 MG PO (03:31)
[2016-10-13] MEDS ORDERED: GLUCPH PO (03:31)
[2016-10-13] MEDS ORDERED: SEROQUEL400 MG PO (03:32)
[2016-10-13] MEDS ORDERED: REG5 PO (03:32)
[2016-10-13] MEDS ORDERED: BUSPAR10 PO (03:33)
[2016-10-13] MEDS ORDERED: ZOL100 PO (03:34)
[2016-10-13] MEDS ORDERED: AMB10 PO (03:34)
[2016-10-13] MEDS ORDERED: SPRYCEL100 MG PO (03:35)
[2016-10-13] MEDS ORDERED: COMP10B PO (03:35)
[2016-10-13] MEDS ORDERED: ZOFRANODT8 PO/SL (03:36)
[2016-10-13] MEDS ORDERED: VENTOLIN HFA INH (03:37)
[2016-10-13] MEDS ORDERED: TYLENOL PM PO (03:38)
[2016-10-13] MEDS ORDERED: CORT-DOME 1% CR15 GM TOP (03:39)
[2017-01-01] MEDS ORDERED: COMP10B PO (17:33)
[2017-01-01] MEDS ORDERED: PRAZOSIN HCL1 MG PO (17:33)
[2017-01-01] MEDS ORDERED: REM15 PO (17:34)
[2017-01-01] MEDS ORDERED: MELATONIN5 M1 PO (17:35)
[2017-01-01] MEDS ORDERED: TRIAMCINOLONE C80 GM TOP (17:35)
[2017-01-01] MEDS ORDERED: ZYPREXA10 MG PO (17:37)
[2017-01-01] MEDS ORDERED: TYLENOL PM PO (17:38)
[2017-01-01] MEDS ORDERED: SPRYCEL100 MG PO (17:39)
[2017-01-01] MEDS ORDERED: ZOFRAN8 PO (17:40)
[2017-01-01] MEDS ORDERED: AT25 PO (17:40)
[2017-01-01] MEDS ORDERED: GLUCPH PO (17:41)
[2017-01-01] MEDS ORDERED: ZANTAC300 MG PO (17:41)
[2017-01-01] MEDS ORDERED: NEUR400 PO (17:41)
[2017-01-01] MEDS ORDERED: BUSPAR15 M1 PO (17:42)
[2017-01-01] MEDS ORDERED: ZANAFLEX 4 MG TA4 MG PO (17:43)
[2017-01-01] MEDS ORDERED: REG5 PO (17:43)
[2017-01-01] MEDS ORDERED: SEROQUEL400 MG PO (17:44)
[2017-01-01] MEDS ORDERED: DOX10 PO (17:44)
[2017-01-01] MEDS ORDERED: SIMPLY SLEEP25 MG PO (17:45)
[2017-01-01] MEDS ORDERED: AMB10 PO (17:46)
[2017-01-01] MEDS ORDERED: ZOL100 PO (17:46)
[2017-01-01] MEDS ORDERED: PHENTERMINE37.5 M1 PO (17:47)
[2017-01-01] MEDS ORDERED: MSCONTIN PO (17:48)
[2017-01-01] MEDS ORDERED: PROAIR HFA INH (17:52)
[2017-01-01] MEDS ORDERED: ADVAIR250 INH (17:53)
[2017-01-01] MEDS ORDERED: FLONASE NAS (17:55)
[2017-01-01] MEDS ORDERED: KEPPRA500 PO (18:04)
[2017-01-01] MEDS ORDERED: GENPRIL200 MG PO (18:04)
[2017-01-01] MEDS ORDERED: ACTOS30 PO (18:06)
[2017-01-01] MEDS ORDERED: OXYCODONE (18:12)
== END 2016-08-20 14:25 | disposition home or self-care (01) ==
LOC: ER 11:57
PROVIDERS: Hospitalist
DX: R10.9 Unspecified abdominal pain (principal); C95.90 Leukemia, unspecified not having achieved remission; J45.909 Unspecified asthma, uncomplicated; Z88.5 Allergy status to narcotic agent; Z88.0 Allergy status to penicillin; Z88.8 Allergy status to other drugs, medicaments and biological substances; Z79.899 Other long term (current) drug therapy; Z79.84 Long term (current) use of oral hypoglycemic drugs
CPT/HCPCS: 74000; 80048; 81001; 85025; 96374; 96375; 99284; A9270-GY; J1200; J2550

== ENCOUNTER 2016-09-14 21:44 | Emergency (ER) | payer MEDICARE, OTHER ==
[2016-09-14 22:07] LABS: WBC (NOT ORDERED) (RFLEX) 0 (0-5)
[2016-09-14 22:13] LABS: ASCORBIC ACID (UR NOT ORDER) NEG (NEG); BILIRUBIN, URINE NEGATIVE (NEG); ER URINALYSIS TAT 0 Hrs 07 Mins; KETONE, URINE NEGATIVE (NEG); LEUKOCYTE ESTERASE(NOT OR NEG (NEG); NITRITE (URINE) NEG (NEG)
[2016-09-14 22:14] LABS: BASOPHILS 4.1 %; BASOPHILS ABSOLUTE 0.26 10/3/uL (0.0-0.16); EOSINOPHILS 5.3 %; EOSINOPHILS ABSOLUTE 0.34 10/3/uL (0.0-0.53); ER CBC TAT 0 Hrs 08 Mins; HEMATOCRIT 31.7 % (36.0-48.0); HEMOGLOBIN 10.4 g/dL (12.0-16.0); IMMATURE GRANULOCYTES 0.9 %; IMMATURE GRANULOCYTES ABSOLUTE 0.06 10/3/uL (0.0-0.11); LYMPHOCYTES 26.8 %; LYMPHOCYTES ABSOLUTE 1.71 10/3/uL (0.67-4.30); MEAN CORPUS HGB CONC 32.8 g/dL (32.0-36.0); MEAN CORPUSCULAR HEMOGLOB 26.8 pg (26.0-34.0); MEAN PLATELET VOLUME 8.8 fL (9.2-13.0); MONOCYTES 6.9 %; MONOCYTES ABSOLUTE 0.44 10/3/uL (0.21-1.20); NEUTROPHILS ABSOLUTE 3.57 10/3/uL (2.02-8.40); PLATELET COUNT 349 10/3/uL (150-400); RBC DISTRIBUTION WIDTH 17.9 % (12.0-16.0); RED CELL COUNT 3.88 10/6/uL (4.0-5.6); WHITE BLOOD CELLS 6.4 10/3/uL (4.5-10.5)
[2016-09-14 22:15] LABS: MANUAL DIFF NO %; MEAN CORPUSCULAR VOLUME 81.7 fL (80-100)
[2016-09-14 22:24] LABS: CHLORIDE, SERUM 109 MMOL/L (96-112); CO2 (CARBON DIOXIDE) 26 MMOL/L (24-34); CREATININE 1.05 MG/DL (0.55-1.02); GFR AFRICAN AMERICAN 80 ML/MIN (>=60); GFR NON AFRICAN AMERICAN 69 ML/MIN (>=60); GLUCOSE, SERUM 105 MG/DL (60-99); SODIUM, SERUM 140 MMOL/L (135-148)
[2016-09-14 22:27] LABS: BUN (BLOOD UREA NITROGEN) 23 MG/DL (6-23); CALCIUM, SERUM 8.8 MG/DL (8.5-10.4)
[2016-10-13] MEDS ORDERED: NEUR400 PO (03:30)
[2016-10-13] MEDS ORDERED: GLUCPH PO (03:31)
[2016-10-13] MEDS ORDERED: ZANAFLEX 4 MG TA4 MG PO (03:31)
[2016-10-13] MEDS ORDERED: REG5 PO (03:32)
[2016-10-13] MEDS ORDERED: SEROQUEL400 MG PO (03:32)
[2016-10-13] MEDS ORDERED: BUSPAR10 PO (03:33)
[2016-10-13] MEDS ORDERED: AMB10 PO (03:34)
[2016-10-13] MEDS ORDERED: ZOL100 PO (03:34)
[2016-10-13] MEDS ORDERED: SPRYCEL100 MG PO (03:35)
[2016-10-13] MEDS ORDERED: COMP10B PO (03:35)
[2016-10-13] MEDS ORDERED: ZOFRANODT8 PO/SL (03:36)
[2016-10-13] MEDS ORDERED: VENTOLIN HFA INH (03:37)
[2016-10-13] MEDS ORDERED: TYLENOL PM PO (03:38)
[2016-10-13] MEDS ORDERED: CORT-DOME 1% CR15 GM TOP (03:39)
[2017-01-01] MEDS ORDERED: PRAZOSIN HCL1 MG PO (17:33)
[2017-01-01] MEDS ORDERED: COMP10B PO (17:33)
[2017-01-01] MEDS ORDERED: REM15 PO (17:34)
[2017-01-01] MEDS ORDERED: TRIAMCINOLONE C80 GM TOP (17:35)
[2017-01-01] MEDS ORDERED: MELATONIN5 M1 PO (17:35)
[2017-01-01] MEDS ORDERED: ZYPREXA10 MG PO (17:37)
[2017-01-01] MEDS ORDERED: TYLENOL PM PO (17:38)
[2017-01-01] MEDS ORDERED: SPRYCEL100 MG PO (17:39)
[2017-01-01] MEDS ORDERED: ZOFRAN8 PO (17:40)
[2017-01-01] MEDS ORDERED: AT25 PO (17:40)
[2017-01-01] MEDS ORDERED: GLUCPH PO (17:41)
[2017-01-01] MEDS ORDERED: NEUR400 PO (17:41)
[2017-01-01] MEDS ORDERED: ZANTAC300 MG PO (17:41)
[2017-01-01] MEDS ORDERED: BUSPAR15 M1 PO (17:42)
[2017-01-01] MEDS ORDERED: REG5 PO (17:43)
[2017-01-01] MEDS ORDERED: ZANAFLEX 4 MG TA4 MG PO (17:43)
[2017-01-01] MEDS ORDERED: DOX10 PO (17:44)
[2017-01-01] MEDS ORDERED: SEROQUEL400 MG PO (17:44)
[2017-01-01] MEDS ORDERED: SIMPLY SLEEP25 MG PO (17:45)
[2017-01-01] MEDS ORDERED: ZOL100 PO (17:46)
[2017-01-01] MEDS ORDERED: AMB10 PO (17:46)
[2017-01-01] MEDS ORDERED: PHENTERMINE37.5 M1 PO (17:47)
[2017-01-01] MEDS ORDERED: MSCONTIN PO (17:48)
[2017-01-01] MEDS ORDERED: PROAIR HFA INH (17:52)
[2017-01-01] MEDS ORDERED: ADVAIR250 INH (17:53)
[2017-01-01] MEDS ORDERED: FLONASE NAS (17:55)
[2017-01-01] MEDS ORDERED: GENPRIL200 MG PO (18:04)
[2017-01-01] MEDS ORDERED: KEPPRA500 PO (18:04)
[2017-01-01] MEDS ORDERED: ACTOS30 PO (18:06)
[2017-01-01] MEDS ORDERED: OXYCODONE (18:12)
== END 2016-09-15 00:15 | disposition home or self-care (01) ==
LOC: ER 21:44
PROVIDERS: Specialist
DX: C92.10 Chronic myeloid leukemia, BCR/ABL-positive, not having achieved remission (principal); R10.9 Unspecified abdominal pain; J45.909 Unspecified asthma, uncomplicated; Z88.5 Allergy status to narcotic agent; Z88.0 Allergy status to penicillin; Z79.899 Other long term (current) drug therapy; Z79.84 Long term (current) use of oral hypoglycemic drugs
CPT/HCPCS: 74176; 80048; 81001; 84703; 85025; 96374; 96375; 99284; A9270-GY; J1200; J1885; J2405; J3010